=== PATIENT | male | born 1950 | race Caucasian/White ===

== ENCOUNTER 2018-02-04 19:13 | Emergency (ER) | payer MEDICARE ==
[2018-02-04] MEDS ORDERED: Lidocaine 1% w/Epinephrine 1:100K 30 ML VIAL ONE (20:30)
[2018-02-04] MEDS ORDERED: HYDROcodone/Acetaminophen 5/325 mg Tablet ONE (21:05)
--- NOTE | 2018-02-04 21:56 | RAD ---
TWO VIEWS OF THE LEFT FOREARM: 02/04/18 INDICATION: Laceration of the arm from a skeet thrower. FINDINGS: There is soft tissue laceration involving the radial aspect of the mid to distal left forearm. No rad iopaque foreign bodies evident. No acute osseous abnormality is noted. IMPRESSION: Soft tissue laceration left forearm. No acute osseous abnormality. POS: [facility]
== END 2018-02-04 21:07 | disposition home or self-care (01) ==
LOC: NAV ERS 19:13
DX: S51.812A Laceration without foreign body of left forearm, initial encounter (principal); E78.5 Hyperlipidemia, unspecified; Z87.891 Personal history of nicotine dependence; Z79.899 Other long term (current) drug therapy; W31.9XXA Contact with unspecified machinery, initial encounter; Y99.0 Civilian activity done for income or pay
CPT/HCPCS: 12002; J2001